=== PATIENT | female | born 1965 | race Caucasian/White ===

== ENCOUNTER 2021-01-19 14:29 | Outpatient (CLI) | payer OTHER | END 2021-01-19 14:45 | disposition home or self-care (01) | LOC: SONOGRAMA 14:29 | PROVIDERS: ATTEND Physical Medicine & Rehabilitation Hospice and Palliative Medicine | DX: M76.61 Achilles tendinitis, right leg (principal); M79.604 Pain in right leg ==

== ENCOUNTER 2023-05-30 10:04 | Outpatient (CLI) | payer OTHER | END 2023-05-30 10:10 | disposition home or self-care (01) | LOC: MRI 10:04 | PROVIDERS: ATTEND Physical Medicine & Rehabilitation Hospice and Palliative Medicine | DX: M79.672 Pain in left foot (principal); M72.2 Plantar fascial fibromatosis; M19.072 Primary osteoarthritis, left ankle and foot; M54.50 Low back pain, unspecified; R25.3 Fasciculation | CPT/HCPCS: 72148 ==